=== PATIENT | female | born 1935 | race Caucasian/White ===

== ENCOUNTER 2020-02-24 13:45 | Emergency (ER) | payer MEDICARE, BC ==
[~2020-02-24] VITALS: Ht 167.6 cm; Wt 68.0 kg
[2020-02-24 13:53] VITALS: BP 130/79
--- NOTE | 2020-02-24 13:53 | NUR ---
ED Nurse Note: Pt walked in to ED from [facility] for monocloneal antibody infusion. Pt was tested positive for Covid. No SOB, on room air. Afebrile. AAox4, verbally responsive. ERMD at bedside. Isoaltion precaution is observed.
--- NOTE | 2020-02-24 13:59 | NUR ---
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
[2020-02-24] MEDS ORDERED: Bamlanivimab Fact Sheet MISC ONE (14:15)
[2020-02-24] MEDS ORDERED: Bamlanivimab 700 MG in NS 275 ML IVPB SCH (14:15)
--- NOTE | 2020-02-24 14:24 | NUR ---
ED Nurse Note: IV line established, patent and intact.
--- NOTE | 2020-02-24 16:58 | Emergency Room Report ---
History of Present Illness General Chief Complaint: Upper Respiratory Illness Source: Patient Present Illness HPI 85[facility]year-old [facility] Cov[facility] sent in by Dr. 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 COVID-19 Screening: Positive COVID-19 COVID-19 Testing Source: PHONE OPERATOR Patient History Past Medical History: see triage record Reviewed Nursing Documentation: PMH: Agreed; PSxH: Agreed Nursing Documentation-PMH Past Medical History: No Stated History Review of Systems All Other Systems: negative except mentioned in HPI Physical Exam Vital Signs Date Time Temp Pulse Resp B/P (MAP) Pulse Ox O2 Delivery O2 Flow Rate FiO2 02/24/20 13:51 98.4 103 16 132/81 (98) 91 Room Air Sp02 EP Interpretation: reviewed, normal General Appearance: well appearing, no apparent distress, alert Head: normocephalic, atraumatic Eyes: bilateral eye PERRL, bilateral eye EOMI ENT: uvula midline, moist mucus membranes Neck: supple, thyroid normal, supple/symm/no masses Respiratory: lungs clear, no respiratory distress, no retraction, no accessory muscle use Cardiovascular #1: normal peripheral pulses, regular rate, rhythm, no edema, no gallop, no murmur Gastrointestinal: non tender, soft, no guarding, no rebound Musculoskeletal: normal inspection Neurologic: alert, oriented x3 Psychiatric: mood/affect normal Skin: no rash, warm/dry Medical Decision Making Diagnostic Impression: Primary Impression: Upper respiratory infection Qualified Codes: J06.9 - Acute upper respiratory infection, unspecified Additional Impression: COVID-19 ER Course 85-year-old female received bamlanivimab therapy, without incident. Disposition back home, packet provided for patient. Last Vital Signs Date Time Temp Pulse Resp B/P (MAP) Pulse Ox O2 Delivery O2 Flow Rate FiO2 02/24/20 13:53 103 16 Room Air 02/24/20 13:53 98.4 130/79 96 Disposition: HOME, SELF-CARE Condition: Stable Referrals: Ced Mohan MD (PCP) Patient Instructions: Upper Respiratory Infection, Adult Additional Instructions: The patient was provided with discharge instructions, notified to follow-up with a primary care doctor and or specialist in the next 24-48 hours, and to return to the ED if they have worsening of their symptoms. Please note that this report is being documented using DRAGON technology. This can lead to erroneous entry secondary to incorrect interpretation by the dictating instrument. bamlanivimab information sheet provided to patient. Mateo Alejandra MD Feb 24, 2020 16:58
[2020-02-24 17:23] VITALS: BP 132/80
--- NOTE | 2020-02-24 17:45 | NUR ---
ED Nurse Note: Pt cleared by ERMD for discharge. DC instructions was given and explained to pt and verbalized understanding of teachings. All medical deviecs such as ID band and IV line removed. Pt is AAO x4, ambulatory and left with all personal belongings. P/u by caregiver.
== END 2020-02-24 17:23 | disposition home or self-care (01) ==
LOC: EMR 14:17
DX: U07.1 COVID-19 (principal); J06.9 Acute upper respiratory infection, unspecified; Z23 Encounter for immunization
CPT/HCPCS: 96365; 99284; J7050; Q0239